=== PATIENT | female | born 1945 | race Caucasian/White ===

== ENCOUNTER 2017-04-13 22:03 | Inpatient (IN) | payer OTHER ==
[~2017-04-13] VITALS: Ht 160 cm; Wt 68.9 kg
[~2017-04-13 22:03] MED LIST: HYDROCHLOROTHIA25 MG PO; IRON325 M1 PO; STOOL SOFTENER100 M1 PO; TYLENOL REGULA325 MG PO
[2017-04-14 12:22] VITALS: BP 131/73
[2017-04-14 18:09] VITALS: BP 156/68
[2017-04-14 19:35] VITALS: BP 134/61
[2017-04-15 00:24] VITALS: BP 132/58
[2017-04-15 04:27] VITALS: BP 132/62
[2017-04-15 06:39] LABS: HEMATOCRIT 34.1 % (36.0-46.0); MCV 90.9 FL (83-99)
[2017-04-15 08:23] VITALS: BP 130/60
[2017-04-15 15:49] VITALS: BP 144/64
[2017-04-15 19:49] VITALS: BP 137/60
[2017-04-16 00:22] VITALS: BP 148/65
[2017-04-16 04:19] VITALS: BP 152/67
[2017-04-16 05:34] LABS: HEMATOCRIT 32.9 % (36.0-46.0); MCV 89.9 FL (83-99)
[2017-04-16 08:23] VITALS: BP 155/98
[2017-04-16 11:49] VITALS: BP 158/70
[2017-04-16] MEDS ORDERED: BENADRYL25 MG PO (14:04)
[2017-04-16] MEDS ORDERED: ELIQUIS2.5 MG PO (14:05)
[2017-04-16] MEDS ORDERED: CELECOXIB200 MG PO (14:05)
[2017-04-16] MEDS ORDERED: HYDROCODON-ACE1 EAC7 PO (14:06)
[2017-04-16] MEDS ORDERED: BISACODYL5 MG PO (14:07)
== END 2017-04-16 15:03 | DRG 470 ==
LOC: ENRESERV 22:03 → 2SOUTH 04-14 08:58 → 3WEST 04-14 11:48 → 2SOUTH 04-14 11:54 → 3WEST 04-14 17:37
PROVIDERS: Orthopaedic Surgery
PROC: 0SRC0J9 Replacement of Right Knee Joint with Synthetic Substitute, Cemented, Open Approach (ICD-10-PCS; principal; 2017-04-14)
PROC: 3E0T3BZ Introduction of Anesthetic Agent into Peripheral Nerves and Plexi, Percutaneous Approach (ICD-10-PCS; 2017-04-14)
DX: M17.11 Unilateral primary osteoarthritis, right knee (principal); R11.0 Nausea; T40.2X5A Adverse effect of other opioids, initial encounter; I10 Essential (primary) hypertension; Z88.5 Allergy status to narcotic agent; Z88.6 Allergy status to analgesic agent
CPT/HCPCS: 85014; 85018; C1713; J0131; J0690; J1170; J1885; J2250; J2795; J3010; J7050; Q0175